=== PATIENT | female | born 1995 | race American Indian/Alaskan Native ===

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

== ENCOUNTER 2017-01-15 22:22 | Emergency (ER) | payer MEDICAID, OTHER | END 2017-01-15 22:40 | disposition left against medical advice (07) | LOC: C.ER 22:22 | DX: R42 Dizziness and giddiness (principal); Z02.9 Encounter for administrative examinations, unspecified ==